=== PATIENT | female | born 1960 | race Caucasian/White ===

== ENCOUNTER → 2020-08-15 | Outpatient (CLI) | payer OTHER ==
[2015-07-07 17:58] VITALS: BP 144/66
[~2020-08-15] MED LIST: ATOR20TA58 PO; GABA600T7 PO; LOSA100T14 PO; METO-247 PO; OMEP20CA16 PO; OXYC1TAB22 PO; RANI150C PO
--- NOTE | 2020-08-15 17:06 | KCIC ---
EXAMINATION: LOWER EXT JOINT WO RT INDICATIONS: Right knee pain after fall in March. Restless leg syndrome. TECHNIQUE: Multiplanar multisequence MRI of the right knee was obtained without contrast. COMPARISON: Right knee radiograph 07/25/2020 FINDINGS: MENISCI: There is a complete radial tear of the posterior root medial meniscus with 4 mm extrusion of the meniscal body. There is abnormal signal extending into the posterior horn signal and surfacing along the inferior/free edge of the body medial meniscus. The posterior lateral meniscus is thickened and increased signal, which could be due to fraying, partial tearing, or synovitis. LIGAMENTS: Anterior and posterior cruciate ligaments are intact. Medial collateral ligament and lateral collateral ligament complex including popliteus tendon and iliotibial band are intact. EXTENSOR MECHANISM: Very mild increased signal in the proximal patellar tendon. Quadriceps tendon is unremarkable. Fat pads and retinacula are intact. BONES AND CARTILAGE: There is a low signal fracture line with mild surrounding marrow edema in the medial femoral condyle. There is greater marrow edema and subchondral cysts in the medial tibial plateau, which could be degenerative or due to a subchondral fracture. Full-thickness cartilage loss along the medial patella with small subchondral cysts. There is deep partial thickness cartilage loss at the median ridge. There are subchondral cysts at the medial trochlear facet. There is near full-thickness cartilage loss throughout the weightbearing medial femoral condyle. Superficial partial-thickness cartilage loss in the lateral compartment. OTHER: Large joint effusion. Trace [place] cyst. Muscles and remaining tendons are intact. IMPRESSION: 1. Complete radial tear of the posterior root medial meniscus with extrusion of the meniscal body. Abnormal signal extending to the inferior/free margin of the body medial meniscus. 2. Increased signal at the posterior root lateral meniscus could be due to fraying, synovitis, or partial tearing. 3. Stress fracture of the medial tibial plateau. Moderate marrow edema in the medial femoral condyle could be degenerative or a subchondral fracture. 4. Tricompartment cartilage loss, with areas of full-thickness or near full-thickness cartilage loss in the patellofemoral and medial compartments. Electronically signed by: Renetta Serrano MD (08/15/2020 5:03 PM) [id number]
== END ==
LOC: KCIC MRI 13:17
PROVIDERS: ATTEND Orthopaedic Surgery
DX: S82.51XA Displaced fracture of medial malleolus of right tibia, initial encounter for closed fracture (principal); S83.241A Other tear of medial meniscus, current injury, right knee, initial encounter; X58.XXXA Exposure to other specified factors, initial encounter; Y93.89 Activity, other specified; Y92.89 Other specified places as the place of occurrence of the external cause; Y99.8 Other external cause status
CPT/HCPCS: 73721